=== PATIENT | female | born 2000 | race Caucasian/White ===

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

== ENCOUNTER 2023-08-04 13:23 | Outpatient (REF) | payer MEDICAID, SELFPAY ==
--- NOTE | 2023-08-04 12:00 | PAPFT_PTH ---
PATIENT: Sonia Lim LOC: [facility]#:[id number] AGE/SX: 23/F ROOM: RE08/04/[address]: NAY KwongP : 2000 BED: DIS: 08/04/2023 SPEC #: [id number] RECD: 08/05/23 12:41 STATUS: YAHIR REQ #: [id number] [place]: 08/04/23 12:[address]: Shena Jane DEPT: [facility] Cytology RECD BY: Mell Jorgensen Tissues: 1 - CX/ENDOCX FOR PAP SMEARS Procedures: PAP THIN PREP/UVM Screening HPV DNA PROBE Comments: (CHLAMYDIA/GC)
[2023-08-08 12:36] LABS: Chlamydia Result Negative (Negative); GC Result Negative (Negative)
== END 2023-08-04 13:24 | disposition home or self-care (01) ==
LOC: NCHCN 13:23
PROVIDERS: PCP Nurse Practitioner Family; Visit Provider Nurse Practitioner Family
DX: Z12.4 Encounter for screening for malignant neoplasm of cervix (principal); Z11.3 Encounter for screening for infections with a predominantly sexual mode of transmission; R87.610 Atypical squamous cells of undetermined significance on cytologic smear of cervix (ASC-US)
CPT/HCPCS: 87491; 87591; 88142; 87624

== ENCOUNTER 2023-09-29 21:40 | Emergency (ER) | payer MEDICAID, SELFPAY ==
[2023-09-29 21:43] VITALS: BP 154/94; PULSE 123; RESP 18; TEMP 37.6; O2SAT 97
[2023-09-29 22:39] VITALS: BP 128/72; PULSE 77; RESP 18; TEMP 36.6; O2SAT 98
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
[2023-09-29] MEDS: Amox. 875/Clav. 125, 2 TABS/BTL 1 TAB PO (22:41)
--- NOTE | 2023-09-30 04:33 | NUR.NOTE ---
Pt placed on care management referral list for nose fx and laceration pt to be seen within 1-2 weeks per ER
== END 2023-09-29 23:07 | disposition home or self-care (01) ==
PROVIDERS: Emergency Provider Physician Assistant; PCP Nurse Practitioner Family
DX: S02.2XXB Fracture of nasal bones, initial encounter for open fracture (principal); W21.03XA Struck by baseball, initial encounter; Y93.89 Activity, other specified; Y92.39 Other specified sports and athletic area as the place of occurrence of the external cause
CPT/HCPCS: 12011; 99283

== ENCOUNTER → 2024-01-01 18:47 | Outpatient (CLI) | payer MEDICAID, SELFPAY ==
--- NOTE | 2024-01-01 16:11 | DI.RAD_ITS ---
Exam(s) XR HAND RT COMPLETE EXAM: XR HAND RT COMPLETE CLINICAL HISTORY: S60.229A Contusion, trauma to right hand, hit with softball. TECHNIQUE: 2D digital imaging was performed. Three views. COMPARISON: CR RIGHT WRIST COMPLETE from 02/28/2018 FINDINGS: BONES: No acute fracture is present. No bony destructive lesion is seen. JOINTS: No dislocation present. SOFT TISSUE: Normal. IMPRESSION: Unremarkable radiographs of the right hand. DATA REPOSITORY: RADIATION DOSE DELIVERED:
== END ==
PROVIDERS: PCP Nurse Practitioner Family; Visit Provider Nurse Practitioner Acute Care
DX: S60.221A Contusion of right hand, initial encounter (principal)
CPT/HCPCS: 73130

== ENCOUNTER 2024-01-16 05:35 | Outpatient (CLI) | payer MEDICAID, SELFPAY ==
[2024-01-16 12:18] LABS: Anion Gap 11.9 mmol/L (3-11); BUN 9 mg/dL (7-18); CO2 25.1 mmol/L (21.0-32.0); CREATININE 0.9 mg/dL (0.55-1.02); Calcium 9.3 mg/dL (8.5-10.1); Calculated LDL 127 mg/dL (<100); Chloride 104 mmol/L (98-107); Cholesterol 188 mg/dL (<200); Estimated GFR 93.28 (mL/min/1.73m2); Glucose 107 mg/dL (74-106); HDL Cholesterol 41 mg/dL (40-60); Potassium 3.9 mmol/L (3.5-5.1); Sodium 141 mmol/L (136-145); Triglyceride 101 mg/dL (<150)
== END 2024-01-16 05:36 | disposition home or self-care (01) ==
LOC: LOS 05:35
PROVIDERS: PCP Nurse Practitioner Family; Visit Provider Nurse Practitioner Family
DX: Z00.00 Encounter for general adult medical examination without abnormal findings (principal)
CPT/HCPCS: 36415; 80048; 80061

== ENCOUNTER 2024-06-14 08:39 | Outpatient (REF) | payer MEDICAID, SELFPAY ==
--- NOTE | 2024-06-14 08:20 | PAPFT_PTH ---
PATIENT: Sonia Lim LOC: [facility] U#:[id number] AGE/SX: 24/F ROOM: RE06/14/[address]: Susan Sandoval NP : 2000 BED: DIS: 06/14/2024 SPEC #: [id number] RECD: 06/14/24 13:04 STATUS: YAHIR NGUYEN #: [id number] [place]: 06/14/24 08:[address]: Susan Sandoval NP DEPT: [facility] Cytology RECD BY: Mell Jorgensen ENTERED: 06/14/24 13:04 SP TYPE: PAPFT OTHR DR: Shena Jane, YESSI Tissues: 1 - CX/ENDOCX FOR PAP SMEARS Procedures: PAP THIN PREP/[facility] Screening Comments: [id number]
== END 2024-06-14 08:40 | disposition home or self-care (01) ==
LOC: LBN 08:39
PROVIDERS: PCP Nurse Practitioner Family; Visit Provider Nurse Practitioner Women's Health
DX: Z01.419 Encounter for gynecological examination (general) (routine) without abnormal findings (principal); Z30.41 Encounter for surveillance of contraceptive pills; Z12.4 Encounter for screening for malignant neoplasm of cervix
CPT/HCPCS: 88142